=== PATIENT | female | born 1935 | race Caucasian/White ===

== ENCOUNTER 2017-11-22 04:22 | Outpatient (CLI) | payer MEDICARE ==
[~2017-11-22 04:22] MED LIST: ASPI-845 PO; CARV12.5 PO; DIO80T PO; FENO48TA15 PO; GLIP5TAB13 PO; METF500T PO; ROSU10TA PO; UBID30CA11 PO; VIT D3 PO
== END 2017-11-22 23:59 | disposition home or self-care (01) ==
LOC: DIABETIC 04:22
PROVIDERS: ATTEND General Practice
DX: E11.9 Type 2 diabetes mellitus without complications (principal)
CPT/HCPCS: G0108

== ENCOUNTER 2018-01-18 02:41 | Outpatient (CLI) | payer MEDICARE | END 2018-01-18 23:59 | disposition home or self-care (01) | LOC: DIABETIC 02:41 | PROVIDERS: ATTEND General Practice | DX: E11.9 Type 2 diabetes mellitus without complications (principal); I10 Essential (primary) hypertension; Z79.82 Long term (current) use of aspirin; Z79.899 Other long term (current) drug therapy; Z85.038 Personal history of other malignant neoplasm of large intestine; Z83.49 Family history of other endocrine, nutritional and metabolic diseases | CPT/HCPCS: G0108 ==

== ENCOUNTER 2018-04-26 01:56 | Outpatient (CLI) | payer MEDICARE | END 2018-04-26 23:59 | disposition home or self-care (01) | LOC: DIABETIC 01:56 | PROVIDERS: ATTEND General Practice | DX: E11.9 Type 2 diabetes mellitus without complications (principal); I10 Essential (primary) hypertension; Z79.82 Long term (current) use of aspirin; Z79.84 Long term (current) use of oral hypoglycemic drugs | CPT/HCPCS: G0108 ==

== ENCOUNTER 2018-07-26 01:30 | Outpatient (CLI) | payer MEDICARE | END 2018-07-26 23:59 | disposition home or self-care (01) | LOC: DIABETIC 01:30 | PROVIDERS: ATTEND General Practice | DX: E11.9 Type 2 diabetes mellitus without complications (principal); Z79.899 Other long term (current) drug therapy | CPT/HCPCS: G0108 ==

== ENCOUNTER 2018-10-25 02:05 | Outpatient (CLI) | payer MEDICARE ==
[~2018-10-25 02:05] MED LIST changes: -ROSU10TA PO; +ROSU10TA2 PO
== END 2018-10-25 23:59 | disposition home or self-care (01) ==
LOC: DIABETIC 02:05
PROVIDERS: ATTEND General Practice
DX: E11.9 Type 2 diabetes mellitus without complications (principal); Z79.84 Long term (current) use of oral hypoglycemic drugs; Z79.899 Other long term (current) drug therapy
CPT/HCPCS: G0108

== ENCOUNTER 2019-02-01 01:53 | Outpatient (CLI) | payer MEDICARE | END 2019-02-01 23:59 | disposition home or self-care (01) | LOC: DIABETIC 01:53 | PROVIDERS: ATTEND General Practice | DX: E11.9 Type 2 diabetes mellitus without complications (principal); I10 Essential (primary) hypertension; Z79.84 Long term (current) use of oral hypoglycemic drugs; Z79.82 Long term (current) use of aspirin; Z79.899 Other long term (current) drug therapy | CPT/HCPCS: G0108 ==

== ENCOUNTER 2019-05-03 01:57 | Outpatient (CLI) | payer MEDICARE | END 2019-05-03 23:59 | disposition home or self-care (01) | LOC: DIABETIC 01:57 | PROVIDERS: ATTEND General Practice | DX: E11.9 Type 2 diabetes mellitus without complications (principal); I10 Essential (primary) hypertension; Z79.84 Long term (current) use of oral hypoglycemic drugs; Z79.82 Long term (current) use of aspirin; Z79.899 Other long term (current) drug therapy | CPT/HCPCS: G0108 ==